=== PATIENT | male | born 1965 | race Caucasian/White ===

== ENCOUNTER 2020-09-26 10:52 | Outpatient (CLI) | payer OTHER, SELFPAY ==
[2020-09-26 10:59] VITALS: BMI 28.1
--- NOTE | 2020-09-26 11:05 | ECG_ITS ---
[facility] Test Date: 2020-09-26 Pat Name: Jamil Mancuso Department: Room: Gender: Male Lead Cook: : 1965 Requested By: Yola Merino Order Number: [id number] Hussein MD: Yola Merino M.D. Interpretive Statements NAME OF STUDY: TREADMILL STRESS ECHOCARDIOGRAM INDICATION: Chest Pain PROCEDURE: At the baseline, the patient's blood pressure was 133/74 mmHg, oxygen saturation 97% with a heart rate of 68 bpm. The baseline electrocardiogram showed normal sinus rhythm with possible old anteroseptal infarct. The patient exercised for 11 minutes 37 seconds on a standard Khari protocol. Patient attained a maximum heart rate of 151 beats per minute(92% of the maximum predicted heart rate) with a blood pressure at the peak exercise of 203/78 mm Hg and oxygen saturation 87%. The EKG at the peak exercise revealed sinus tachycardia with no significant ST-T wave changes. Patient did not have any chest pain or any significant EKG changes with the exercise. During the recovery phase, there were no new changes. Blood pressure at the end of the recovery phase was 135/73 mm Hg, oxygen saturation 98% with a heart rate of 94 beats per minute. Echocardiographic pictures were taken at the baseline, immediately following the peak exercise and during the recovery phase. CONCLUSION: 1. Normal EKG response to treadmill exercise. 2. No exercise-induced chest pain or cardiac arrhythmia. 3. Excellent exercise tolerance, attained a maximum of 13.5 METs. Maximum VO2 of 47.3 mL/kg/min. 4. Baseline normal blood pressure and heart rate with normal response to exercise. 5. Please see separate report for the echocardiographic response to exercise. Electronically Signed On 09-28-2020 17:57:21 CDT by Yola Merino M.D. [id number]
--- NOTE | 2020-09-26 11:06 | USCV_ITS ---
Stress Echo Jamil Mancuso Age: 55 Gender: M : 1965 Exam Date: 09/26/2020 11:25 Ordering Phys: Yola Merino MD ([email or web address]) Technologist: Exam Location: [facility] [place] Indication: cp Rhythm: Sinus Patient History: Chest pain Cardiac Medications: Medications in past 24 hours: Contrast: Stress Results Protocol: Khari Total dose(mL): Exercise Duration (min:sec): 11:37 METS: 13.5 Resting HR: 68 Resting BP: 133 / 74 Peak HR: 151 Peak BP: 203 / 79 Max Predicted HR: 163 93 % Max Predicted HR Target HR: 139 Double Product: 48463 Stress Summary: The patient's target heart rate was achieved BP Response: Normal Reason for Termination: Maximal effort/unable to continue Cardiac Symptoms: Short of Breath, Leg fatigue ECG Analysis Resting ECG: Stress ECG: Arrhythmia: MEASUREMENTS (Male/Female) Normal Values FINDINGS PROCEDURE: At the baseline, the patient's blood pressure was [133/74] mmHg with a heart rate of 87 bpm. The patient exercised for [11 minutes 37 seconds] on a standard Khari protocol. Patient attained a maximum heart rate of 151 beats per minute(93% of the maximum predicted heart rate) with a blood pressure at the peak exercise of 203/79 mm Hg. During the recovery phase, there were no new changes. Echocardiographic pictures were taken at the baseline, immediately following the peak exercise and during the recovery phase. Baseline echocardiogram: Normal left ventricular size and systolic function with ejection fraction estimated at [55 ]%. No regional wall motion abnormalities. Normal right ventricle size and systolic function. Normal right atrial and mildly increased left atrial size. No pericardial effusion. No intracardiac masses. Peak exercise echocardiogram: Normal augmentation of left ventricular systolic function with exercise. No new regional wall motion abnormalities. Recovery echocardiogram: Left ventricular systolic function normalizes. No regional wall motion abnormalities. CONCLUSIONS 1. This is a treadmill stress echocardiogram. 2. Excellent exercise tolerance, attained a maximum of 13.5 METs. Double product of 30,654. 3. Normal blood pressure and heart rate response to exercise. 4. Normal echocardiographic response to exercise. 5. Normal EKG response to treadmill exercise. Please refer to separate report for details. Yola Merino MD (Electronically Signed) Final Date: 28 September 2020 18:04 S
[2020-09-26 11:45] VITALS: BP 135/73; PULSE 97
== END 2020-09-26 10:53 | disposition home or self-care (01) ==
PROVIDERS: PCP Family Medicine; Visit Provider Internal Medicine Cardiovascular Disease
DX: R07.9 Chest pain, unspecified (principal)
CPT/HCPCS: 93017; 93350

== ENCOUNTER → 2022-03-07 07:51 | Outpatient (BNVA) | payer OTHER, SELFPAY | PROVIDERS: PCP Family Medicine; Referring Provider Family Medicine; Visit Provider Specialist | DX: M25.561 Pain in right knee (principal) | CPT/HCPCS: 73560; 73565; 99203 ==

== ENCOUNTER 2022-04-05 09:16 | Outpatient (CLI) | payer OTHER, SELFPAY ==
--- NOTE | 2022-04-05 09:30 | MR_ITS ---
WS: [id number] MRI RIGHT KNEE HISTORY: right knee pain, medial knee pain. History of meniscal repair. COMPARISON: RIGHT knee 01/31/2022 Anterior cruciate ligament: Enlarged thickened ACL. Fibers of the ACL appear normal course. No tear. Posterior cruciate ligament: Small amount of increased signal in the distal PCL but no tear. Medial collateral ligament: Mild displacement of the MCL from the joint line due to osteophytes and m eniscal disease. Mild sprain. Posterior lateral corner structures: Mild increased signal in the popliteus tendon. There is a small cyst which may be a ganglion associated with the popliteus tendon. Lobulated cystic mass measures 3.0 x 1.3 cm. This likely a cystic mass extends along the popliteus tendon and posterior to the fibular head. Medial menisci: Absent posterior horn. No meniscal extrusion is identified. There is a very small kailash unt of meniscal signal extending towards the root. Anterior horn is blunted at the free edge. Lateral meniscus: Intrasubstance degeneration in the posterior horn. There is some fraying along the surfaces and the free edge. Small caliber anterior horn. Extensor mechanism: Distal quadriceps tendon and patellar tendons are intact. Fluid and soft tissue: Small joint effusion. No Payne's cyst. Osseous and articular structures: Patellofemoral compartment: Moderate narrowing of patellofemoral compartment. Small osteophytes along the posterior surface of the patella. Thinning but intact cartilage. No marrow edema or fracture. Medial compartment: Severe narrowing of the medial compartment with near complete loss of cartilage. Loss of the normal bony cortex with subchondral cystic changes in the tibial plateau and femoral cond yle surface. Joint line osteophytes. Lateral compartment: Moderate narrowing of the lateral compartment. Moderate chondromalacia involving the surface of the femoral condyle and tibial plateau. There is a small amount of soft tissue edema posterior to the femoral condyles in the midline. MR/MR knee RT wo con* [id number] IMPRESSION: 1. Severe medial compartment internal degeneration with loss of cartilage, ost eophytes and subchondral cystic changes. 2. Non-identifiable posterior horn medial meniscus and blunting free edge ante rior horn consistent with a tear. 3. Extensive mucoid degeneration ACL. 4. Intrasubstance degeneration posterior horn lateral meniscus with a small an terior horn. 5. Lobulated cystic mass along the popliteus tendon is probably a ganglion jeovany suring 3.0 x 1.3 cm. 6. Mild MCL sprain. MCL is displaced from the joint line osteophytes. 7. Soft tissue edema posterior to the femoral condyles.
== END 2022-04-05 09:17 | disposition home or self-care (01) ==
LOC: RAD 09:18
PROVIDERS: PCP Family Medicine; Visit Provider Specialist
DX: M25.561 Pain in right knee (principal); S83.411A Sprain of medial collateral ligament of right knee, initial encounter; X58.XXXA Exposure to other specified factors, initial encounter; R60.9 Edema, unspecified
CPT/HCPCS: 73721

== ENCOUNTER → 2022-06-06 14:54 | Outpatient (BNVA) | payer OTHER, SELFPAY | PROVIDERS: PCP Family Medicine; Visit Provider Specialist | DX: Z09 Encounter for follow-up examination after completed treatment for conditions other than malignant neoplasm (principal) | CPT/HCPCS: 99213 ==

== ENCOUNTER 2022-06-25 06:00 | Outpatient (RCR) | payer OTHER, SELFPAY | END 2022-07-25 23:59 | disposition home or self-care (01) | LOC: MPT 06:00 | PROVIDERS: Visit Provider Specialist | DX: M25.561 Pain in right knee (principal) | CPT/HCPCS: 97110; 97161; G0283 ==

== ENCOUNTER 2022-07-26 06:00 | Outpatient (RCR) | payer OTHER, SELFPAY | END 2022-08-24 23:59 | disposition home or self-care (01) | LOC: MPT 06:00 | PROVIDERS: Visit Provider Specialist | DX: M25.561 Pain in right knee (principal) | CPT/HCPCS: 97110; 97140; G0283 ==

== ENCOUNTER 2022-08-25 06:00 | Outpatient (RCR) | payer OTHER, SELFPAY | END 2022-09-03 23:59 | disposition home or self-care (01) | LOC: MPT 06:00 | PROVIDERS: Visit Provider Specialist | DX: M25.561 Pain in right knee (principal) | CPT/HCPCS: 97110; G0283 ==

== ENCOUNTER 2023-03-25 13:26 | Outpatient (CLI) | payer OTHER, SELFPAY ==
--- NOTE | 2023-03-25 13:32 | MR_ITS ---
WS: [id number] MRI CERVICAL SPINE NONCONTRAST TECHNIQUE: Sagittal T1, T2 and STIR imaging. Axial T2, gradient, and fiesta imaging. CLINICAL INFORMATION: NECK PAIN/ARM WRIST PAIN-BILATERAL COMPARISON: MRI 2018 and myelogram 05/09/2017 FINDINGS: Straightening of the normal cervical lordosis. Moderate spondylitic changes. Cord signal is normal. A nterior hypertrophic changes C4-C5. C2-C3: Mild RIGHT and no significant LEFT foraminal narrowing. Mild osteophytic ridging. C3-C4: Mild disc osteophytic ridging. Mild central canal stenosis with slight indentation of the RIGH T ventral cervical cord. Moderate to advanced RIGHT facet arthropathy. Moderate to severe RIGHT and m ild LEFT bony foraminal narrowing. This is similar to the prior MRI. C4-C5: Disc osteophyte complex with moderate central canal stenosis. Slight indentation cervical cor d. This is similar to the prior MRI. Severe LEFT and moderate RIGHT bony foraminal narrowing. Moderat e facet arthropathy. C5-C6: Disc osteophyte complex with endplate ridging. Slight indentation of the LEFT ventral cervical cord. Mild central canal stenosis unchanged. Severe RIGHT and moderate LEFT bony foraminal narrowing . Mild facet arthropathy. C6-C7: Small central disc osteophyte protrusion. Mild central canal stenosis. Moderate bilateral bony foraminal narrowing. Uncovertebral joint hypertrophy. Disc protrusion at this level has improved com pared to previous. C7-T1: Disc osteophyte complex with endplate ridging. Severe RIGHT greater than LEFT bony foraminal n arrowing. Slight effacement of the ventral thecal sac. Mild facet arthropathy. Small central protrusions T1-2 and T2-3 similar to previous with mild to moderate bilateral foraminal narrowing at these levels. Visualized brain stem structures: Normal. Prevertebral soft tissues: Normal. IMPRESSION: 1. Straightening the normal cervical lordosis. Moderate spondylitic changes. Anterior hypertrophic c hanges C4-5. 2. Central disc protrusions at C4-C5 and C5-C6 have improved compared to 2018. Moderate central shania l stenosis C4-C5 and mild central canal stenosis C5-C6 and C6-C7 similar to the prior study. 3. Multilevel moderate to severe bony foraminal narrowing not significantly changed worse at RIGHT C 3-C4, LEFT C4-C5, bilateral C5-C6, bilateral C6-C7, and bilateral C7-T1. 4. Moderate to advanced RIGHT C3-C4, bilateral C4-5, facet arthropathy.
== END 2023-03-25 13:27 | disposition home or self-care (01) ==
PROVIDERS: Visit Provider Family Medicine
DX: M50.221 Other cervical disc displacement at C4-C5 level (principal); M48.02 Spinal stenosis, cervical region; M47.812 Spondylosis without myelopathy or radiculopathy, cervical region; M25.532 Pain in left wrist; M25.531 Pain in right wrist; M79.602 Pain in left arm; M79.601 Pain in right arm
CPT/HCPCS: 72141

== ENCOUNTER → 2024-04-07 15:16 | Outpatient (BNVA) | payer OTHER, SELFPAY | PROVIDERS: Referring Provider Family Medicine; Visit Provider Psychiatry & Neurology Neurology | DX: G56.03 Carpal tunnel syndrome, bilateral upper limbs (principal) | CPT/HCPCS: 95911 ==

== ENCOUNTER 2024-05-07 14:32 | Outpatient (CLI) | payer OTHER, SELFPAY ==
--- NOTE | 2024-05-07 14:37 | CT_ITS ---
WS: [id number] CT HEAD TECHNIQUE: Noncontrast and contrast-enhanced CT of the head. CLINICAL INFORMATION: BILATERAL HEARING LOSS,SENSORINEURAL COMPARISON: None. DLP: 2291.[address] scans at [facility] use at least one of these dose optimization techniques: automated exposure control; mA and/or kV adjustment per patient size (includes targeted exams where dose is matched to clinical indication); or iterative reconstruction. FINDINGS: Paranasal sinuses and mastoid air cells are well aerated. Hypoplastic frontal sinus. No abnormal intracranial enhancement. Mild small vessel changes. Mild parenchymal volume loss. No hydrocephalus. Prominent perivascular spaces in the basal ganglia. Normal optic chiasm and pituitary infundibulum. No extra-axial fluid collections. No other acute findings. CT/CT head wo/w con [id number] IMPRESSION: 1. No evidence intracranial hemorrhage or mass effect. 2. Mild small vessel changes with mild parenchymal volume loss. 3. No abnormal intracranial enhancement. 4. Paranasal sinuses and mastoid air cells are well aerated.
[2024-05-07 15:17] LABS: Blood Urea Nitrogen 17 mg/dL (8-23); Glomerular Filtration Rate 85.8 mL/min (90-130)
[2024-05-07] MEDS: iohexol 350 mg/mL 500 mL Btl (per mL) IV (15:22)
== END 2024-05-07 14:33 | disposition home or self-care (01) ==
LOC: RAD 14:34
PROVIDERS: PCP Family Medicine; Visit Provider Otolaryngology
DX: H90.3 Sensorineural hearing loss, bilateral (principal); I67.82 Cerebral ischemia; R90.89 Other abnormal findings on diagnostic imaging of central nervous system
CPT/HCPCS: 70470; 82565; 84520

== ENCOUNTER → 2024-08-19 10:39 | Outpatient (BNVA) | payer OTHER, SELFPAY | PROVIDERS: PCP Family Medicine; Referring Provider Family Medicine; Visit Provider Internal Medicine Rheumatology | DX: M06.00 Rheumatoid arthritis without rheumatoid factor, unspecified site (principal); M81.0 Age-related osteoporosis without current pathological fracture; Z79.899 Other long term (current) drug therapy; M79.643 Pain in unspecified hand; M79.673 Pain in unspecified foot; S99.919A Unspecified injury of unspecified ankle, initial encounter; X58.XXXA Exposure to other specified factors, initial encounter | CPT/HCPCS: 73130; 73610; 73630; 80076; 82306; 82565; 83520; 85025; 85651; 86140; 86200; 86480; 86704; 86803; 87340; 99204 ==

== ENCOUNTER → 2024-09-24 10:46 | Outpatient (BNVA) | payer OTHER, SELFPAY | PROVIDERS: PCP Family Medicine; Visit Provider Internal Medicine Rheumatology | DX: M19.90 Unspecified osteoarthritis, unspecified site (principal); Z79.899 Other long term (current) drug therapy | CPT/HCPCS: 80076; 82565; 85025; 85651; 86140 ==